=== PATIENT | male | born 1960 | race Caucasian/White ===

== ENCOUNTER 2016-10-04 10:41 | Emergency (ER) | payer OTHER ==
[~2016-10-04] VITALS: Ht 185.4 cm; Wt 98.0 kg
[~2016-10-04 10:41] MED LIST: RIVA15 PO
[2016-10-04 10:50] VITALS: BP 155/94; PULSE 62; RESP 16; TEMP 97.5; O2SAT 97
[2016-10-04] MEDS ORDERED: XARE15TA PO (10:59)
[2016-10-04] MEDS ORDERED: ASPI81TA11 PO (10:59)
--- NOTE | 2016-10-04 11:05 | PD ---
HPI Chief Complaint: Chest Pain Time Seen by Provider: 10:53 Travel History International Travel<30 days: No Contact w/Intl Traveler<30days: No Traveled to known affect area: No History of Present Illness HPI This patient complains of chest pain. Location is left upper chest. Duration is 90 minutes. Severity is moderate. It's reproducible with deep breath. It is a stabbing ice pick type of pain. Last one or 2 minutes and resolves. Patient has been on Xarelto for the last 2 weeks due to DVT in the left lower leg. He has history of multiple DVTs and does follow with well reactivator operator Dr. Mtz.. No cardiac disease. Denies fever or cough or shortness of breath. No alleviating factors. PFSH Past Medical History Hx Anticoagulant Therapy: Yes Diminished Hearing: No Deep Vein Thrombosis: Yes (hx in left ankle recent 2 weeks ago and hx of this one year ago) Tetanus Vaccination: > 5 Years Influenza Vaccination: Yes Past Surgical History Eye Surgery: Yes (LEFT EYE VITRECTOMY) Oral Surgery: Yes (wisdom teeth) Social History Alcohol Use: Yes (6 [employer]/MONTH) Tobacco Use: Yes Substance Use: No Allergies-Medications (Allergen,Severity, Reaction): Coded Allergies: Penicillin (Verified Allergy, Unknown, 10/04/16) Reported Meds & Prescriptions Reported Meds & Active Scripts Active Reported Aspirin EC (Aspirin) 81 Mg Tabdr 81 Mg PO DAILY Xarelto (Rivaroxaban) 15 Mg Tab 15 Mg PO Q12HR Review of Systems General / Constitutional: No: Fever Eyes: No: Visual changes HENT: No: Headaches Cardiovascular: Positive: Chest Pain or Discomfort Respiratory: No: Shortness of Breath Gastrointestinal: No: Abdominal Pain Genitourinary: No: Dysuria Musculoskeletal: No: Pain Skin: No Rash Neurologic: No: Weakness Psychiatric: No: Depression Endocrine: No: Polydipsia Hematologic/Lymphatic: No: Easy Bruising Physical Exam Narrative GENERAL: Well-nourished, well-developed patient in no apparent distress. SKIN: Focused skin assessment reveals no rash and nodules. Skin is Warm and dry. HEAD: Atraumatic. Normocephalic. EYES: Pupils equal and round. No scleral icterus. No injection or drainage. ENT: No nasal bleeding or discharge. Mucous membranes pink and moist. NECK: Trachea midline. No JVD. CARDIOVASCULAR: Regular rate and rhythm. No murmur appreciated. RESPIRATORY: No accessory muscle use. Clear to auscultation. Breath sounds equal bilaterally. GASTROINTESTINAL: Abdomen soft, non-tender, nondistended. Hepatic and splenic margins not palpable. MUSCULOSKELETAL: No obvious deformities. No clubbing. No cyanosis. No edema. No chest wall tenderness NEUROLOGICAL: Awake and alert. No obvious cranial nerve deficits. Motor grossly within normal limits. Normal speech. PSYCHIATRIC: Appropriate mood and affect; insight and judgment normal. Data Data Last Documented VS Vital Signs Date Time Temp Pulse Resp B/P Pulse Ox O2 Delivery O2 Flow Rate FiO2 10/04/16 12:34 59 16 Room Air 10/04/16 11:35 129/87 97 10/04/16 10:50 97.5 Orders Electrocardiogram (10/04/16 11:01) Basic Metabolic Panel (Bmp) (10/04/16 11:01) Ckmb (Isoenzyme) Profile (10/04/16 11:01) Complete Blood Count With Diff (10/04/16 11:01) Troponin I (10/04/16 11:01) Chest, Single Ap (10/04/16 11:01) Ecg Monitoring (10/04/16 11:01) Iv Access Insert/Monitor (10/04/16 11:01) Oximetry (10/04/16 11:01) Sodium Chloride 0.9% Flush (Ns Flush) (10/04/16 11:15) Ct Pulmonary Angiogram (10/04/16 ) CKMB (10/04/16 10:52) CKMB% (10/04/16 10:52) Iohexol 350 Inj (Omnipaque 350 Inj) (10/04/16 12:32) Labs Laboratory Tests Test 10/04/16 10:52 White Blood Count 5.1 TH/MM3 Red Blood Count 4.80 MIL/MM3 Hemoglobin 15.0 GM/DL Hematocrit 43.4 % Mean Corpuscular Volume 90.4 FL Mean Corpuscular Hemoglobin 31.1 PG Mean Corpuscular Hemoglobin 34.5 % Concent Red Cell Distribution Width 11.6 % Platelet Count 225 TH/MM3 Mean Platelet Volume 8.1 FL Neutrophils (%) (Auto) 61.2 % Lymphocytes (%) (Auto) 21.5 % Monocytes (%) (Auto) 9.8 % Eosinophils (%) (Auto) 6.5 % Basophils (%) (Auto) 1.0 % Neutrophils # (Auto) 3.1 TH/MM3 Lymphocytes # (Auto) 1.1 TH/MM3 Monocytes # (Auto) 0.5 TH/MM3 Eosinophils # (Auto) 0.3 TH/MM3 Basophils # (Auto) 0.1 TH/MM3 CBC Comment DIFF FINAL Differential Comment Sodium Level 139 MEQ/L Potassium Level 3.7 MEQ/L Chloride Level 105 MEQ/L Carbon Dioxide Level 23.5 MEQ/L Anion Gap 11 MEQ/L Blood Urea Nitrogen 16 MG/DL Creatinine 0.82 MG/DL Estimat Glomerular Filtration 98 ML/MIN Rate Random Glucose 104 MG/DL Calcium Level 8.6 MG/DL Total Creatine Kinase 251 U/L Creatine Kinase MB 2.3 NG/ML Troponin I LESS THAN 0.02 NG/ML MDM Medical Decision Making Medical Screen Exam Complete: Yes Emergency Medical Condition: Yes Medical Record Reviewed: Yes Differential Diagnosis PE, pneumothorax, pleurisy, ACS Narrative Course I have reviewed the patient's electronic medical record. Reviewed hematology evaluation from August 2016 IV placed I reviewed the EKG which is normal I reviewed the chest x-ray which doesn't show anything acute or emergent Extended cardiac monitoring shows sinus rhythm without ectopy CBC is normal Metabolic profile is normal CK is normal Troponin is normal Coagulation studies are normal Given history of multiple clots with a new acute pleuritic chest pain I did a CT pulmonary and exam which reveals no evidence of pulmonary embolus. The pulmonary nodule noted is something the patient is aware of and his well reactivator operator is following. Stable for outpatient follow-up Diagnosis Primary Impression: Pleuritic chest pain Additional Impression: Pulmonary nodule, left Additional Instructions: The patient was advised to follow up with their physician and return if they worsen. Med/Other Pt SpecificInfo: Other Disposition: 01 DISCHARGE HOME Condition: Stable Bello José MD October 04, 2016 11:05
[2016-10-04] MEDS ORDERED: SODIUM CHLORIDE 0.9% FLUSH 10 ML FLUSH IVF PRN (11:15)
--- NOTE | 2016-10-04 11:20 | RADHPO ---
EXAM DATE/TIME: 10/04/2016 11:13 [facility] COMPARISON: No previous studies available for comparison. INDICATIONS : Chest pain MEDICAL HISTORY : None. SURGICAL HISTORY : None. ENCOUNTER: Initial ACUITY: 1 day PAIN SCORE: 4/10 LOCATION: Left middle chest FINDINGS: Portable AP view of the chest demonstrates a normal-sized cardiac silhouette. No effusion, consolidat ion, or pneumothorax is visualized. The bones and soft tissues demonstrate no acute abnormality. Lung s are underinflated. CONCLUSION: Underinflated examination. No acute cardiopulmonary abnormality is identified. Brody Pate MD on October 04, 2016 at 11:17 Board Certified Radiologist. This report was verified electronically.
[2016-10-04 11:22] LABS: AUTOMATED NEUTROPHIL # 3.1 TH/MM3 (1.8-7.7); BASOPHIL # 0.1 TH/MM3 (0-0.2); EOSINOPHIL # 0.3 TH/MM3 (0-0.4); EOSINOPHIL % 6.5 % (0.0-4.0); HEMATOCRIT 43.4 % (39.0-51.0); HEMO FLAGS DIFF FINAL; LYMPH % 21.5 % (9.0-44.0); LYMPHOCYTE # 1.1 TH/MM3 (1.0-4.8); MEAN CELL VOLUME 90.4 FL (80.0-100.0); MEAN CORPUSCULAR HEMOGLOBIN 31.1 PG (27.0-34.0); MEAN CORPUSCULAR HGB CONC 34.5 % (32.0-36.0); MONO % 9.8 % (0.0-8.0); NEUT % 61.2 % (16.0-70.0); PLATELET COUNT 225 TH/MM3 (150-450); RED CELL DISTRIBUTION WIDTH 11.6 % (11.6-17.2); WHITE BLOOD COUNT 5.1 TH/MM3 (4.0-11.0)
[2016-10-04 11:35] VITALS: BP 129/87; PULSE 60; RESP 16; O2SAT 97
[2016-10-04 11:44] LABS: CHLORIDE 105 MEQ/L (98-107); POTASSIUM 3.7 MEQ/L (3.5-5.1); SODIUM (NA) 139 MEQ/L (136-145)
[2016-10-04 11:47] LABS: ANION GAP 11 MEQ/L (5-15); BICARBONATE 23.5 MEQ/L (21.0-32.0); BLOOD UREA NITROGEN 16 MG/DL (7-18)
[2016-10-04 11:50] LABS: GLOMERULAR FILTRATION RATE 98 ML/MIN (>89)
[2016-10-04 11:53] LABS: CREATINE KINASE 251 U/L (39-308)
[2016-10-04 12:06] LABS: CKMB 2.3 NG/ML (0.5-3.6)
[2016-10-04] MEDS ORDERED: IOHEXOL 350 MG/ML 10 ML VIAL (for RAD DIAG) IV ONE (12:32)
--- NOTE | 2016-10-04 12:41 | RADHPO ---
EXAM DATE/TIME: 10/04/2016 12:10 [facility] COMPARISON: No previous studies available for comparison. INDICATIONS : Short of breath with left sided chest pain. History of deep vein thrombosis. IV CONTRAST: 75 cc Omnipaque 350 (iohexol) IV RADIATION DOSE: 21.10 CTDIvol (mGy) MEDICAL HISTORY : Deep venous thrombosis. Anticoagulant therapy. SURGICAL HISTORY : None. ENCOUNTER: Initial ACUITY: 1 day PAIN SCALE: 3/10 LOCATION: Left chest TECHNIQUE: Volumetric scanning of the chest was performed using a pulmonary embolism protocol MIP images were re constructed. Using automated exposure control and adjustment of the mA and/or kV according to patien t size, radiation dose was kept as low as reasonably achievable to obtain optimal diagnostic quality images. FINDINGS: PULMONARY ARTERIES: No filling defects are seen in the pulmonary arteries through the segmental level. LUNGS: There is no consolidation or pneumothorax . A 5 mm noncalcified pulmonary nodule is present in the in ferior aspect of the left upper lobe. PLEURAE: There is no pleural thickening or pleural effusion. MEDIASTINUM: There is coronary artery calcification. Heart and great vessels demonstrate no acute abnormality. The re is no lymphadenopathy. MUSCULOSKELETAL: There are mild degenerative changes of the thoracic spine. MISCELLANEOUS: The visualized upper abdominal organs demonstrate no acute abnormality. CONCLUSION: 1. No PE is identified. Additionally, no acute finding is seen. 2. There is a 5 mm nodule in the inferior aspect of the left upper lobe. Suggest correlation with any prior imaging studies that could confirm longer-term stability. If none are available, suggest 6 mon th followup noncontrast chest CT. 3. Coronary artery calcification. Brody Pate MD on October 04, 2016 at 12:34 Board Certified Radiologist. This report was verified electronically.
[2016-10-04 13:15] VITALS: BP 140/89
--- NOTE | 2016-10-04 15:04 | EKG ---
Date Performed: 10/04/2016 Time Performed: 10:40:12 PTAGE: 55 years EKG: Sinus bradycardia. Normal ECG except for rate NO PREVIOUS TRACING DOCTOR: Eddie Rushing Interpretating Date/Time 10/04/2016 15:01:41
== END 2016-10-04 13:26 | disposition home or self-care (01) ==
LOC: PHED 10:41
DX: R07.81 Pleurodynia (principal); R91.1 Solitary pulmonary nodule; R00.1 Bradycardia, unspecified
CPT/HCPCS: 71010; 71275; 80048; 82550; 82552; 84484; 85025; 93005; 99285; Q9967